=== PATIENT | male | born 1950 | race Two or more races ===

== ENCOUNTER 2023-12-04 12:50 | Inpatient (IN) | payer MEDICARE ==
[~2023-12-04] VITALS: Ht 177.8 cm; Wt 127.0 kg
[~2023-12-04 12:50] MED LIST: APIX5TAB MT; ASPI-1497 MT; ATOR20TA MT; FURO-151 MT; METO25TA6 MT
[2023-12-04 13:37] LABS: BASOPHILS % 0.8 % (0.0-2.0); DIFFERENTIAL COMMENT 0; EOSINOPHILS % 1.6 % (0.0-5.0); HEMATOCRIT. 37.8 % (42.0-52.0); HEMOGLOBIN. 12.2 g/dL (14.0-18.0); LYMPHOCYTES % 12.2 % (20.0-50.0); MEAN CORPUSCULAR HEMOGLOBIN 26.4 pg (28.0-32.0); MEAN CORPUSCULAR HGB CONC 32.2 g/dL (31.0-37.0); MEAN CORPUSCULAR VOLUME 82.1 fL (80.0-94.0); MEAN PLATELET VOLUME 10.4 fl (7.4-10.4); MONOCYTES % 8.8 % (2.0-8.0); NEUTROPHILS % 76.6 % (40.0-76.0); PLATELET 130 x1000/uL (130-400); RED CELL DISTRIBUTION WIDTH 16.6 % (11.6-14.6); WHITE BLOOD COUNT 7.5 x1000/uL (4.5-11.0)
[2023-12-04 13:42] LABS: CHLORIDE 109 mEq/L (98-107); POTASSIUM 3.3 mEq/L (3.5-5.1); SODIUM 141 mEq/L (136-145)
[2023-12-04 13:43] LABS: CALCIUM 9.1 mg/dL (8.7-10.4); CARBON DIOXIDE 25 mEq/L (21-32)
[2023-12-04 13:48] LABS: GLUCOSE 98 mg/dL (70-105); UREA NITROGEN BLOOD 10 mg/dL (9-23)
[2023-12-04 13:49] LABS: TROPONIN I HIGH SENSITIVITY 10 ng/L (3.0-53)
[2023-12-04] MEDS: FUROSEMIDE 40MG/4ML VIAL IVP ONE (16:37)
[2023-12-04] MEDS ORDERED: ONDANSETRON HCL 4MG/2ML INJ IV PRN (17:15)
[2023-12-04] MEDS ORDERED: NALOXONE HCL 0.4MG/ML VIAL IV PRN (17:30)
[2023-12-04] MEDS: APIXABAN 5 MG TABLET PO SCH (17:50)
[2023-12-04] MEDS: ASPIRIN 81MG EC TABLET PO SCH (17:51)
[2023-12-04] MEDS: FUROSEMIDE 40MG/4ML VIAL IV SCH (17:51)
[2023-12-04] MEDS: ATORVASTATIN CALCIUM 20MG TABLET PO SCH (17:51)
[2023-12-04 18:23] LABS: CLARITY URINE CLEAR (CLEAR); COLOR URINE YELLOW (YELLOW); GLUCOSE URINE NEGATIVE (NEGATIVE); KETONES URINE NEGATIVE (NEGATIVE); LEUKOCYTE ESTERASE URINE NEGATIVE (NEGATIVE); NITRITE URINE NEGATIVE (NEGATIVE); OCCULT BLOOD URINE TRACE (NEGATIVE); PH URINE 6.5 (4.5-8.0); PROTEIN URINE NEGATIVE (NEGATIVE); SPECIFIC GRAVITY URINE 1.005 (1.005-1.030); UROBILINOGEN URINE 0.2 E.U./dL (0.2-1.0)
[2023-12-04 18:41] LABS: BACTERIA URINE NONE SEEN; RBC URINE NONE SEEN /hpf (0-2); SQUAMOUS EPITHELIAL CELL URINE NONE SEEN /lpf (RARE/1+); WBC URINE NONE SEEN /hpf (0-2)
[2023-12-04] MEDS: METOPROLOL TARTRATE 25MG TABLET PO SCH (22:22)
[2023-12-05 01:59] LABS: CREATINE KINASE MB FRACTION < 0.5 ng/mL (0.5-3.6)
[2023-12-05 02:00] LABS: CREATINE KINASE 59 IU/L (46-171); TROPONIN I HIGH SENSITIVITY 12 ng/L (3.0-53)
[2023-12-05] MEDS: HYDROCODONE/ACETAMINOPHEN 5/325MG TABLET PO PRN (05:46)
[2023-12-05] MEDS: LOSARTAN 25 MG TABLET PO SCH (08:57)
[2023-12-05] MEDS ORDERED: ASPIRIN 81MG EC TABLET PO SCH (09:00)
[2023-12-05 09:07] VITALS: BP 160/86; PULSE 98; RESP 18; TEMP 36.14
[2023-12-05 10:24] LABS: BASOPHILS % 0.9 % (0.0-2.0); EOSINOPHILS % 1.7 % (0.0-5.0); HEMOGLOBIN. 12.8 g/dL (14.0-18.0); MEAN CORPUSCULAR HGB CONC 32.9 g/dL (31.0-37.0); MEAN CORPUSCULAR VOLUME 82.1 fL (80.0-94.0); MEAN PLATELET VOLUME 10.8 fl (7.4-10.4); MONOCYTES % 8.8 % (2.0-8.0); NEUTROPHILS % 75.6 % (40.0-76.0); PLATELET 143 x1000/uL (130-400); RED BLOOD CELL COUNT 4.75 mill/uL (4.7-6.1); RED CELL DISTRIBUTION WIDTH 16.8 % (11.6-14.6); WHITE BLOOD COUNT 7.1 x1000/uL (4.5-11.0)
[2023-12-05 10:32] LABS: CHLORIDE 106 mEq/L (98-107); POTASSIUM 3.4 mEq/L (3.5-5.1); SODIUM 140 mEq/L (136-145)
[2023-12-05 10:33] LABS: CARBON DIOXIDE 27 mEq/L (21-32)
[2023-12-05 10:38] LABS: CREATININE 0.9 mg/dL (0.6-1.3); GLUCOSE 99 mg/dL (70-105); UREA NITROGEN BLOOD 10 mg/dL (9-23)
[2023-12-05 10:39] LABS: CREATINE KINASE MB FRACTION 0.6 ng/mL (0.5-3.6)
[2023-12-05 12:00] VITALS: BP 124/59; PULSE 96; RESP 18; TEMP 36.22512; O2SAT 100
[2023-12-05 16:00] VITALS: BP 125/74; PULSE 75; RESP 18; TEMP 36.33624; O2SAT 100
[2023-12-05] MEDS: POTASSIUM CHLORIDE 20MEQ TABLET SR PO SCH (17:36)
[2023-12-05] MEDS: FUROSEMIDE 100MG/10ML VIAL IV SCH (17:37)
[2023-12-05 19:17] VITALS: PULSE 92; RESP 16; O2SAT 100
[2023-12-05] MEDS: IPRATROPIUM/ALBUTEROL 0.5-3(2.5)MG/3ML NEB HHN PRN (19:17)
[2023-12-05 20:00] VITALS: BP 128/65; PULSE 95; RESP 18; TEMP 36.55848; O2SAT 100
[2023-12-05] MEDS: CARVEDILOL 12.5MG TABLET PO SCH (20:40)
[2023-12-06] VITALS: BP 117/61; PULSE 90; RESP 18; TEMP 36.28068; O2SAT 98
[2023-12-06] MEDS: TEMAZEPAM 15MG CAPSULE PO NR (00:40)
[2023-12-06 04:00] VITALS: BP 136/62; PULSE 81; RESP 18; TEMP 36.50292; O2SAT 100
[2023-12-06] MEDS: ACETAMINOPHEN 325MG TABLET PO PRN (05:19)
[2023-12-06 06:40] LABS: BASOPHILS % 1.5 % (0.0-2.0); DIFFERENTIAL COMMENT 0; EOSINOPHILS % 2.6 % (0.0-5.0); HEMATOCRIT. 37.9 % (42.0-52.0); HEMOGLOBIN. 12.5 g/dL (14.0-18.0); LYMPHOCYTES % 13.3 % (20.0-50.0); MEAN CORPUSCULAR HEMOGLOBIN 27.2 pg (28.0-32.0); MEAN CORPUSCULAR VOLUME 82.6 fL (80.0-94.0); MEAN PLATELET VOLUME 11.2 fl (7.4-10.4); NEUTROPHILS % 74.6 % (40.0-76.0); PLATELET 127 x1000/uL (130-400); RED BLOOD CELL COUNT 4.59 mill/uL (4.7-6.1); RED CELL DISTRIBUTION WIDTH 16.2 % (11.6-14.6); WHITE BLOOD COUNT 6.5 x1000/uL (4.5-11.0)
[2023-12-06 06:50] LABS: CARBON DIOXIDE 28 mEq/L (21-32); CHLORIDE 104 mEq/L (98-107); POTASSIUM 3.8 mEq/L (3.5-5.1); SODIUM 140 mEq/L (136-145)
[2023-12-06 06:51] LABS: CALCIUM 9.1 mg/dL (8.7-10.4)
[2023-12-06 06:53] LABS: TROPONIN I HIGH SENSITIVITY 9 ng/L (3.0-53)
[2023-12-06 06:56] LABS: CREATININE 0.9 mg/dL (0.6-1.3); GLUCOSE 87 mg/dL (70-105); UREA NITROGEN BLOOD 11 mg/dL (9-23)
[2023-12-06 08:05] VITALS: BP 111/63; PULSE 86; RESP 20; TEMP 35.94732; O2SAT 92
[2023-12-06] MEDS: MAGNESIUM OXIDE 400MG TABLET PO SCH (12:00)
[2023-12-06 12:03] VITALS: BP 105/68; PULSE 93; RESP 19; TEMP 36.28068; O2SAT 100
[2023-12-06] MEDS: MAGNESIUM 2 G PREMIX 50 ML IV NR (14:57)
[2023-12-06 16:08] VITALS: BP 135/67; PULSE 80; RESP 20; TEMP 36.22512; O2SAT 100
[2023-12-06 20:00] VITALS: BP 107/63; PULSE 68; RESP 18; TEMP 36.16956; O2SAT 99
[2023-12-07] VITALS (7 sets, daily range): BP systolic 101–141; BP diastolic 59–86; PULSE 81–95; RESP 18–19; TEMP 35.8362–36.55848; O2SAT 95–100
[2023-12-07 07:57] LABS: BASOPHILS % 0.8 % (0.0-2.0); DIFFERENTIAL COMMENT 0; EOSINOPHILS % 3.1 % (0.0-5.0); HEMATOCRIT. 36.7 % (42.0-52.0); HEMOGLOBIN. 12.2 g/dL (14.0-18.0); LYMPHOCYTES % 16.9 % (20.0-50.0); MEAN CORPUSCULAR HEMOGLOBIN 27.3 pg (28.0-32.0); MEAN CORPUSCULAR HGB CONC 33.1 g/dL (31.0-37.0); MEAN CORPUSCULAR VOLUME 82.3 fL (80.0-94.0); MEAN PLATELET VOLUME 11.6 fl (7.4-10.4); MONOCYTES % 10.4 % (2.0-8.0); NEUTROPHILS % 68.8 % (40.0-76.0); PLATELET 137 x1000/uL (130-400); RED BLOOD CELL COUNT 4.46 mill/uL (4.7-6.1); RED CELL DISTRIBUTION WIDTH 16.5 % (11.6-14.6); WHITE BLOOD COUNT 5.6 x1000/uL (4.5-11.0)
[2023-12-07 08:18] LABS: CARBON DIOXIDE 31 mEq/L (21-32); CHLORIDE 101 mEq/L (98-107); POTASSIUM 3.7 mEq/L (3.5-5.1); SODIUM 138 mEq/L (136-145)
[2023-12-07 08:22] LABS: TROPONIN I HIGH SENSITIVITY 7 ng/L (3.0-53)
[2023-12-07 08:24] LABS: CREATININE 1.1 mg/dL (0.6-1.3); GLUCOSE 73 mg/dL (70-105); UREA NITROGEN BLOOD 14 mg/dL (9-23)
[2023-12-07] MEDS ORDERED: FURO-151 PO (14:27)
[2023-12-07] MEDS ORDERED: MAGN400C MT (14:27)
[2023-12-07] MEDS ORDERED: POTA20LI52 MT (14:28)
[2023-12-08] VITALS: BP 138/66; PULSE 89; RESP 18; TEMP 36.16956; O2SAT 100
[2023-12-08 04:00] VITALS: BP 121/67; PULSE 82; RESP 18; TEMP 36.3918; O2SAT 100
[2023-12-08 08:00] VITALS: BP 132/65; PULSE 87; RESP 18; TEMP 36.55848; O2SAT 98
[2023-12-08 08:47] VITALS: PULSE 87
[2023-12-08] MEDS ORDERED: FUROSEMIDE 40MG TABLET PO SCH (21:00)
[2023-12-09] MEDS ORDERED: LOSARTAN 50 MG TABLET PO SCH (09:00)
== END 2023-12-08 10:47 | disposition home or self-care (01) | DRG 291 ==
LOC: ER 12:50 → EDBEDREQ 13:19 → 5WST 17:12 → EDBEDREQ 17:17 → EDBEDREQTM 17:17 → 7WST 12-05 08:15
PROVIDERS: ADMIT Internal Medicine; ATTEND Internal Medicine
DX: I11.0 Hypertensive heart disease with heart failure (principal); I50.23 Acute on chronic systolic (congestive) heart failure; J96.21 Acute and chronic respiratory failure with hypoxia; I48.20 Chronic atrial fibrillation, unspecified; Z68.41 Body mass index [BMI] 40.0-44.9, adult; I42.0 Dilated cardiomyopathy; I27.20 Pulmonary hypertension, unspecified; E87.6 Hypokalemia; I08.3 Combined rheumatic disorders of mitral, aortic and tricuspid valves; G47.33 Obstructive sleep apnea (adult) (pediatric); E11.9 Type 2 diabetes mellitus without complications; M79.651 Pain in right thigh; E66.09 Other obesity due to excess calories; M79.652 Pain in left thigh; F12.90 Cannabis use, unspecified, uncomplicated; E78.5 Hyperlipidemia, unspecified; I25.10 Atherosclerotic heart disease of native coronary artery without angina pectoris; Z79.01 Long term (current) use of anticoagulants; Z79.899 Other long term (current) drug therapy; Z91.148 Patient's other noncompliance with medication regimen for other reason; Z91.199 Patient's noncompliance with other medical treatment and regimen due to unspecified reason; Z95.1 Presence of aortocoronary bypass graft
CPT/HCPCS: 36415; 71045; 80048; 81003; 82550; 82553; 83735; 83880; 84484; 85025; 85379; 93005; 93970; 94640; 97116; 97162; 99291; C1893; J1940; J3475

== ENCOUNTER 2024-02-15 22:55 | Inpatient (IN) | payer MEDICARE ==
[~2024-02-15] VITALS: Ht 185.4 cm; Wt 129.9 kg
[~2024-02-15 22:55] MED LIST changes: -FURO-151 MT; +FURO-151 PO; +MAGN400C MT; +POTA20LI52 MT
[2024-02-15 23:00] VITALS: O2SAT 98
[2024-02-15 23:37] LABS: CHLORIDE 109 mEq/L (98-107); POTASSIUM 3.6 mEq/L (3.5-5.1); SODIUM 140 mEq/L (136-145)
[2024-02-15 23:38] LABS: CALCIUM 8.8 mg/dL (8.7-10.4); CARBON DIOXIDE 25 mEq/L (21-32)
[2024-02-15 23:42] LABS: EOSINOPHILS % 1.4 % (0.0-5.0); HEMATOCRIT. 33.5 % (42.0-52.0); LYMPHOCYTES % 14.1 % (20.0-50.0); MEAN CORPUSCULAR HEMOGLOBIN 27.3 pg (28.0-32.0); MEAN CORPUSCULAR HGB CONC 32.8 g/dL (31.0-37.0); MEAN CORPUSCULAR VOLUME 83.4 fL (80.0-94.0); MEAN PLATELET VOLUME 10.3 fl (7.4-10.4); NEUTROPHILS % 73.5 % (40.0-76.0); PLATELET 132 x1000/uL (130-400); RED BLOOD CELL COUNT 4.01 mill/uL (4.7-6.1); WHITE BLOOD COUNT 7.4 x1000/uL (4.5-11.0)
[2024-02-15 23:43] LABS: CREATININE 0.9 mg/dL (0.6-1.3); GLUCOSE 87 mg/dL (70-105); UREA NITROGEN BLOOD 11 mg/dL (9-23)
[2024-02-15 23:45] LABS: TROPONIN I HIGH SENSITIVITY 9 ng/L (3.0-53)
[2024-02-15 23:58] LABS: ETHANOL BLOOD < 10 mg/dL (<10)
[2024-02-16] LABS: *AMPHETAMINES SCREEN URINE NEGATIVE (NEGATIVE); *BARBITURATES SCREEN URINE NEGATIVE (NEGATIVE); *BENZODIAZEPINES SCREEN URINE NEGATIVE (NEGATIVE); *COCAINE SCREEN URINE NEGATIVE (NEGATIVE); CANNABINOID URINE SCREEN PRESUMPTIVE POSITIVE (NEGATIVE); ECSTASY MDMA SCREEN URINE NEGATIVE (NEGATIVE); METHADONE URINE SCREEN NEGATIVE (NEGATIVE); OPIATES URINE SCREEN NEGATIVE (NEGATIVE); PHENCYCLIDINE URINE SCREEN NEGATIVE (NEGATIVE)
[2024-02-16] MEDS: FUROSEMIDE 40MG/4ML VIAL IVP NR (02:00)
[2024-02-16 02:55] VITALS: BP 156/100; PULSE 128; RESP 19; TEMP 36.418
[2024-02-16 04:00] VITALS: BP 156/100; PULSE 85; RESP 19; TEMP 36.3918; O2SAT 99
[2024-02-16] MEDS ORDERED: ACETAMINOPHEN 325MG TABLET PO PRN (06:15)
[2024-02-16 08:00] VITALS: BP 145/81; PULSE 103; RESP 20; TEMP 36.33624; O2SAT 98
[2024-02-16] MEDS: PANTOPRAZOLE 40MG DR TABLET PO SCH (08:45)
[2024-02-16] MEDS: APIXABAN 5 MG TABLET PO SCH (08:46)
[2024-02-16] MEDS: FUROSEMIDE 40MG TABLET PO SCH (08:46)
[2024-02-16] MEDS: ASPIRIN 81MG EC TABLET PO SCH (08:46)
[2024-02-16] MEDS: POTASSIUM CHLORIDE 20MEQ/PACKET PO SCH (08:47)
[2024-02-16] MEDS: METOPROLOL TARTRATE 25MG TABLET PO SCH (08:47)
[2024-02-16] MEDS ORDERED: POTASSIUM CHLORIDE MT SCH (09:00)
[2024-02-16] MEDS: NITROGLYCERIN 0.4MG TABLET SL SL PRN (09:02)
[2024-02-16 12:00] VITALS: BP 125/78; PULSE 81; RESP 20; TEMP 36.33624; O2SAT 95
[2024-02-16 12:53] LABS: CHLORIDE 107 mEq/L (98-107); POTASSIUM 3.6 mEq/L (3.5-5.1); SODIUM 140 mEq/L (136-145)
[2024-02-16 12:54] LABS: CALCIUM 9.2 mg/dL (8.7-10.4); CARBON DIOXIDE 24 mEq/L (21-32)
[2024-02-16 12:57] LABS: BASOPHILS % 0.9 % (0.0-2.0); EOSINOPHILS % 1.5 % (0.0-5.0); HEMATOCRIT. 37.2 % (42.0-52.0); MEAN CORPUSCULAR HEMOGLOBIN 26.9 pg (28.0-32.0); MEAN CORPUSCULAR HGB CONC 32.2 g/dL (31.0-37.0); MEAN CORPUSCULAR VOLUME 83.7 fL (80.0-94.0); MEAN PLATELET VOLUME 11.1 fl (7.4-10.4); MONOCYTES % 9.4 % (2.0-8.0); NEUTROPHILS % 70.2 % (40.0-76.0); PLATELET 149 x1000/uL (130-400); RED BLOOD CELL COUNT 4.44 mill/uL (4.7-6.1); RED CELL DISTRIBUTION WIDTH 17.1 % (11.6-14.6)
[2024-02-16 12:59] LABS: CREATININE 0.9 mg/dL (0.6-1.3); GLUCOSE 75 mg/dL (70-105); TRIGLYCERIDE 58 mg/dL (0-150); TROPONIN I HIGH SENSITIVITY 11 ng/L (3.0-53); UREA NITROGEN BLOOD 11 mg/dL (9-23)
[2024-02-16 13:00] LABS: LDL CHOLESTEROL 62 mg/dL (5-100)
[2024-02-16 13:01] LABS: CHOLESTEROL 117 mg/dL (<200); HDL CHOLESTEROL 36 mg/dL (>55)
[2024-02-16 16:00] VITALS: BP 130/78; PULSE 78; RESP 18; TEMP 36.33624; O2SAT 98
[2024-02-16 19:02] LABS: TROPONIN I HIGH SENSITIVITY 12 ng/L (3.0-53)
[2024-02-16 20:00] VITALS: BP 139/81; PULSE 102; RESP 20; TEMP 36.44736; O2SAT 99
[2024-02-16] MEDS: FUROSEMIDE 40MG/4ML VIAL IVP SCH (21:17)
[2024-02-16] MEDS: ATORVASTATIN CALCIUM 40MG TABLET PO SCH (21:18)
[2024-02-17] VITALS: BP 129/70; PULSE 102; RESP 19; TEMP 36.28068; O2SAT 99
[2024-02-17 04:00] VITALS: BP 138/76; PULSE 87; RESP 18; TEMP 36.3918; O2SAT 100
[2024-02-17 06:06] LABS: CARBON DIOXIDE 27 mEq/L (21-32); CHLORIDE 104 mEq/L (98-107); POTASSIUM 3.2 mEq/L (3.5-5.1); SODIUM 139 mEq/L (136-145)
[2024-02-17 06:12] LABS: GLUCOSE 84 mg/dL (70-105); UREA NITROGEN BLOOD 11 mg/dL (9-23)
[2024-02-17 07:06] LABS: BASOPHILS % 0.8 % (0.0-2.0); DIFFERENTIAL COMMENT 0; EOSINOPHILS % 1.4 % (0.0-5.0); HEMOGLOBIN. 11.6 g/dL (14.0-18.0); LYMPHOCYTES % 13.1 % (20.0-50.0); MEAN CORPUSCULAR HEMOGLOBIN 27.4 pg (28.0-32.0); MEAN CORPUSCULAR HGB CONC 33.1 g/dL (31.0-37.0); MEAN CORPUSCULAR VOLUME 82.9 fL (80.0-94.0); MEAN PLATELET VOLUME 11.2 fl (7.4-10.4); MONOCYTES % 10.3 % (2.0-8.0); NEUTROPHILS % 74.4 % (40.0-76.0); PLATELET 140 x1000/uL (130-400); RED BLOOD CELL COUNT 4.23 mill/uL (4.7-6.1); RED CELL DISTRIBUTION WIDTH 16.7 % (11.6-14.6); WHITE BLOOD COUNT 6.8 x1000/uL (4.5-11.0)
[2024-02-17 08:00] VITALS: BP 129/86; PULSE 79; RESP 20; TEMP 36.72516; O2SAT 100
[2024-02-17] MEDS: POTASSIUM CHLORIDE 20MEQ TABLET SR PO SCH (09:12)
[2024-02-17 12:00] VITALS: BP 120/78; PULSE 86; RESP 20; TEMP 36.44736; O2SAT 100
[2024-02-17 16:00] VITALS: BP 143/98; PULSE 105; RESP 20; TEMP 36.33624; O2SAT 97
[2024-02-17] MEDS: OLANZAPINE 10 MG/VIAL IM NR (17:40)
[2024-02-17 20:00] VITALS: BP 124/70; PULSE 98; RESP 19; TEMP 36.114; O2SAT 95
[2024-02-18] VITALS (7 sets, daily range): BP systolic 112–139; BP diastolic 57–96; PULSE 68–106; RESP 18–20; TEMP 36.05844–36.72516; O2SAT 98–100
[2024-02-18] MEDS: LOSARTAN 25 MG TABLET PO SCH (08:58)
[2024-02-18 10:04] LABS: CARBON DIOXIDE 24 mEq/L (21-32); CHLORIDE 104 mEq/L (98-107); POTASSIUM 3.6 mEq/L (3.5-5.1); SODIUM 138 mEq/L (136-145)
[2024-02-18 10:06] LABS: CALCIUM 9.2 mg/dL (8.7-10.4)
[2024-02-18 10:07] LABS: BASOPHILS % 1.2 % (0.0-2.0); DIFFERENTIAL COMMENT 0; EOSINOPHILS % 1.6 % (0.0-5.0); HEMATOCRIT. 37.1 % (42.0-52.0); HEMOGLOBIN. 12.1 g/dL (14.0-18.0); LYMPHOCYTES % 15.7 % (20.0-50.0); MEAN CORPUSCULAR HEMOGLOBIN 27.1 pg (28.0-32.0); MEAN CORPUSCULAR HGB CONC 32.5 g/dL (31.0-37.0); MEAN CORPUSCULAR VOLUME 83.3 fL (80.0-94.0); MEAN PLATELET VOLUME 10.8 fl (7.4-10.4); MONOCYTES % 9.3 % (2.0-8.0); NEUTROPHILS % 72.2 % (40.0-76.0); PLATELET 149 x1000/uL (130-400); RED BLOOD CELL COUNT 4.46 mill/uL (4.7-6.1); RED CELL DISTRIBUTION WIDTH 16.7 % (11.6-14.6); WHITE BLOOD COUNT 7.2 x1000/uL (4.5-11.0)
[2024-02-18 10:10] LABS: CREATININE 1.1 mg/dL (0.6-1.3); GLUCOSE 89 mg/dL (70-105); UREA NITROGEN BLOOD 12 mg/dL (9-23)
[2024-02-18] MEDS ORDERED: LOSA25TA26 MT (16:04)
[2024-02-19] VITALS: BP 122/60; PULSE 73; RESP 18; TEMP 36.9474; O2SAT 97
[2024-02-19 04:00] VITALS: BP 146/72; PULSE 80; RESP 20; TEMP 37.11408; O2SAT 97
[2024-02-19 08:46] VITALS: BP 122/67; PULSE 106; RESP 20; TEMP 36.3918; O2SAT 95
[2024-02-19 13:20] VITALS: BP 129/66; PULSE 99; RESP 18; TEMP 36.22512; O2SAT 95
== END 2024-02-19 14:45 | disposition home or self-care (01) | DRG 291 ==
LOC: ER 23:14 → 7WST 02-16 00:47 → EDBEDREQDT 02-16 00:51 → EDBEDREQ 02-16 00:51 → EDBEDREQTM 02-16 00:51
PROVIDERS: ADMIT Internal Medicine; ATTEND Internal Medicine
DX: I11.0 Hypertensive heart disease with heart failure (principal); I50.23 Acute on chronic systolic (congestive) heart failure; G93.40 Encephalopathy, unspecified; I48.91 Unspecified atrial fibrillation; I25.10 Atherosclerotic heart disease of native coronary artery without angina pectoris; D64.9 Anemia, unspecified; I48.0 Paroxysmal atrial fibrillation; Z95.1 Presence of aortocoronary bypass graft
CPT/HCPCS: 36415; 71045; 80048; 80061; 80305; 80320; 83880; 84443; 84484; 85025; 93005; 99285; J1940; J3490; G0480

== ENCOUNTER 2024-03-19 14:30 | Inpatient (IN) | payer MEDICARE ==
[~2024-03-19] VITALS: Ht 188 cm; Wt 132.4 kg
[~2024-03-19 14:30] MED LIST changes: -FURO-151 PO; +LOSA25TA26 MT
[2024-03-19] MEDS: FUROSEMIDE 40MG/4ML VIAL IVP ONE (15:30)
[2024-03-19 16:33] LABS: BASOPHILS % 1.4 % (0.0-2.0); DIFFERENTIAL COMMENT 0; EOSINOPHILS % 2.1 % (0.0-5.0); HEMATOCRIT. 34.9 % (42.0-52.0); HEMOGLOBIN. 11.3 g/dL (14.0-18.0); LYMPHOCYTES % 13.7 % (20.0-50.0); MEAN CORPUSCULAR HEMOGLOBIN 26.9 pg (28.0-32.0); MEAN CORPUSCULAR HGB CONC 32.5 g/dL (31.0-37.0); MEAN CORPUSCULAR VOLUME 82.6 fL (80.0-94.0); MEAN PLATELET VOLUME 10.4 fl (7.4-10.4); MONOCYTES % 12.9 % (2.0-8.0); NEUTROPHILS % 69.9 % (40.0-76.0); PLATELET 116 x1000/uL (130-400); RED BLOOD CELL COUNT 4.22 mill/uL (4.7-6.1); RED CELL DISTRIBUTION WIDTH 16.4 % (11.6-14.6); WHITE BLOOD COUNT 7.3 x1000/uL (4.5-11.0)
[2024-03-19 16:42] LABS: CHLORIDE 102 mEq/L (98-107); POTASSIUM 3.7 mEq/L (3.5-5.1); SODIUM 137 mEq/L (136-145)
[2024-03-19 16:43] LABS: CARBON DIOXIDE 24 mEq/L (21-32)
[2024-03-19 16:44] LABS: CALCIUM 8.6 mg/dL (8.7-10.4)
[2024-03-19 16:48] LABS: CREATININE 1.4 mg/dL (0.6-1.3); GLUCOSE 94 mg/dL (70-105)
[2024-03-19 16:49] LABS: TROPONIN I HIGH SENSITIVITY 12 ng/L (3.0-53); UREA NITROGEN BLOOD 16 mg/dL (9-23)
[2024-03-19 22:42] LABS: TROPONIN I HIGH SENSITIVITY 12 ng/L (3.0-53)
[2024-03-20] VITALS (7 sets, daily range): BP systolic 103–152; BP diastolic 59–89; PULSE 97–108; RESP 20; TEMP 36.114–37.16964; O2SAT 97–100
[2024-03-20] MEDS ORDERED: HYDROCODONE/ACETAMINOPHEN 5/325MG TABLET PO PRN (01:45)
[2024-03-20] MEDS ORDERED: ONDANSETRON HCL 4MG/2ML INJ IV PRN (01:45)
[2024-03-20] MEDS ORDERED: CLONIDINE 0.1MG TABLET PO PRN (01:45)
[2024-03-20] MEDS ORDERED: IPRATROPIUM/ALBUTEROL 0.5-3(2.5)MG/3ML NEB HHN PRN (01:45)
[2024-03-20 06:54] LABS: CALCIUM 8.7 mg/dL (8.7-10.4); POTASSIUM 3.5 mEq/L (3.5-5.1)
[2024-03-20 07:00] LABS: CREATININE 1.2 mg/dL (0.6-1.3)
[2024-03-20 07:21] LABS: HEMATOCRIT 36.3 % (42.0-52.0); HEMOGLOBIN 11.9 g/dL (14.0-18.0); MEAN CORPUSCULAR HEMOGLOBIN 27.2 pg (28.0-32.0); MEAN CORPUSCULAR HGB CONC 32.7 g/dL (31.0-37.0); MEAN CORPUSCULAR VOLUME 83.2 fL (80.0-94.0); PLATELET 130 x1000/uL (130-400); RED BLOOD CELL COUNT 4.37 mill/uL (4.7-6.1); RED CELL DISTRIBUTION WIDTH 16.2 % (11.6-14.6); WHITE BLOOD COUNT 6.8 x1000/uL (4.5-11.0)
[2024-03-20] MEDS ORDERED: ENOXAPARIN 40MG/0.4ML SYR SUBCUT SCH (09:00)
[2024-03-20] MEDS: FUROSEMIDE 40MG/4ML VIAL IVP SCH ×2 (09:06→17:52)
[2024-03-20] MEDS ORDERED: NALOXONE HCL 0.4MG/ML VIAL IV PRN (16:45)
[2024-03-20] MEDS: ASPIRIN 81MG EC TABLET PO SCH (17:52)
[2024-03-20] MEDS: APIXABAN 5 MG TABLET PO SCH (17:52)
[2024-03-20] MEDS: METOPROLOL TARTRATE 25MG TABLET PO SCH (21:00)
[2024-03-20] MEDS: ATORVASTATIN CALCIUM 20MG TABLET PO SCH (21:53)
[2024-03-21] VITALS: BP 130/75; PULSE 101; RESP 18; TEMP 36.3918; O2SAT 98
[2024-03-21 04:00] VITALS: BP 137/78; PULSE 122; RESP 19; TEMP 36.3918; O2SAT 100
[2024-03-21 08:00] VITALS: BP 124/76; PULSE 113; RESP 20; TEMP 36.114; O2SAT 98
[2024-03-21] MEDS: DIGOXIN 500MCG/2ML AMP IV SCH (10:42)
[2024-03-21] MEDS: METOPROLOL TARTRATE 25MG TABLET PO SCH ×2 (10:44→20:53)
[2024-03-21 12:00] VITALS: BP_SYST 136; BP_SYST 162; BP_DIAS 102; BP_DIAS 54; PULSE 89; RESP 18; TEMP 36.114; TEMP 36.78072; O2SAT 98; O2SAT 99
[2024-03-21 16:00] VITALS: BP 130/63; PULSE 96; RESP 20; TEMP 36.55848; O2SAT 99
[2024-03-21] MEDS: DIGOXIN 500MCG/2ML AMP IV NR (16:21)
[2024-03-21 17:03] LABS: BASOPHILS % 0.8 % (0.0-2.0); EOSINOPHILS % 2.3 % (0.0-5.0); HEMATOCRIT. 36.6 % (42.0-52.0); HEMOGLOBIN. 11.8 g/dL (14.0-18.0); LYMPHOCYTES % 10.5 % (20.0-50.0); MEAN CORPUSCULAR HEMOGLOBIN 27.2 pg (28.0-32.0); MEAN CORPUSCULAR HGB CONC 32.4 g/dL (31.0-37.0); MEAN CORPUSCULAR VOLUME 84.2 fL (80.0-94.0); MEAN PLATELET VOLUME 11.1 fl (7.4-10.4); NEUTROPHILS % 75.4 % (40.0-76.0); PLATELET 134 x1000/uL (130-400); RED BLOOD CELL COUNT 4.34 mill/uL (4.7-6.1); WHITE BLOOD COUNT 8.4 x1000/uL (4.5-11.0)
[2024-03-21 17:09] LABS: POTASSIUM 3.9 mEq/L (3.5-5.1)
[2024-03-21 17:10] LABS: CALCIUM 8.7 mg/dL (8.7-10.4)
[2024-03-21 17:14] LABS: CREATININE 1.3 mg/dL (0.6-1.3)
[2024-03-21] MEDS: DIGOXIN 125MCG TABLET PO SCH (18:28)
[2024-03-21 20:00] VITALS: BP 131/79; PULSE 77; RESP 20; TEMP 36.61404; O2SAT 98
[2024-03-22] VITALS (8 sets, daily range): BP systolic 117–135; BP diastolic 59–76; PULSE 73–83; RESP 18–19; TEMP 36.05844–36.44736; O2SAT 97–100
[2024-03-22] MEDS: FUROSEMIDE 40MG/4ML VIAL IVP SCH (13:13)
[2024-03-22] MEDS ORDERED: FURO80TA87 MT (14:02)
[2024-03-22] MEDS ORDERED: DIGO-34 PO (14:02)
[2024-03-29] MEDS ORDERED: CEPH500C2 MT (13:49)
== END 2024-03-22 23:10 | disposition home or self-care (01) | DRG 291 ==
LOC: ER 14:30 → 7WST 17:15 → EDBEDREQTM 17:30 → EDBEDREQ 17:30
PROVIDERS: ADMIT Internal Medicine; ATTEND Internal Medicine
DX: I11.0 Hypertensive heart disease with heart failure (principal); I50.23 Acute on chronic systolic (congestive) heart failure; I48.19 Other persistent atrial fibrillation; E11.9 Type 2 diabetes mellitus without complications; I25.10 Atherosclerotic heart disease of native coronary artery without angina pectoris; N50.89 Other specified disorders of the male genital organs; E78.00 Pure hypercholesterolemia, unspecified; I27.20 Pulmonary hypertension, unspecified; Z95.1 Presence of aortocoronary bypass graft; Z91.199 Patient's noncompliance with other medical treatment and regimen due to unspecified reason
CPT/HCPCS: 36415; 71045; 80048; 83880; 84484; 85025; 85027; 99285; J1160; J1650; J1940